=== PATIENT | male | born 1960 ===

== ENCOUNTER 2025-03-24 09:59 | Outpatient (REF) | payer OTHER, SELFPAY ==
--- NOTE | ~2025-03-24 | XR_ITS ---
EXAMINATION: XR ELBOW 3 VIEWS RIGHT HISTORY: M25.529 - Pain in unspecified elbow COMPARISON: Comparison is made with prior outside examinations from [facility] dated 03/13/2025. FINDINGS: Three views of the right elbow are submitted. Osseous mineralization is normal. There is an osseous density at the posterior aspect of the elbow without change which may represent a triceps tendon injury/avulsion. The joint spaces are preserved. There is no joint effusion. XR/XR elbow RT min 3V IMPRESSION: Osseous density at the posterior aspect of the elbow which may represent a triceps tendon injury/avulsion. Electronically signed by: Bubba Chawla MD 03/24/2025 01:37 PM EST
== END 2025-03-24 10:00 | disposition home or self-care (01) ==
LOC: HO.HOSX 09:59
PROVIDERS: Visit Provider Physician Assistant
DX: S46.311A Strain of muscle, fascia and tendon of triceps, right arm, initial encounter (principal); W00.0XXA Fall on same level due to ice and snow, initial encounter; Y92.69 Other specified industrial and construction area as the place of occurrence of the external cause; Y93.89 Activity, other specified; Y99.0 Civilian activity done for income or pay
CPT/HCPCS: 73080

== ENCOUNTER 2025-03-24 10:25 | Outpatient (AMB) | payer OTHER, SELFPAY ==
--- NOTE | 2025-03-24 10:51 | MHC.OFFVIS ---
Vital Signs 03/24/25 11:02 Height 5 ft 7 in Weight 190 lb BMI 29.8 Handedness Right Intake Visit Reasons: FC- WC RT Olecranon fx DOI 03/11/25 Intake Note: Red is a 64 year old right hand dominant male who presents today for a evaluation of his right elbow injury, 03/11/25. Patient reports he went to the urgent care on 03/13/25. Patient is having complaints of triceps and shoulder pain. He states that he slipped on ice at work. Patient states he is having little to no pain at the moment. Pain is present when he is putting weight and bumping his elbow. Patient is taking Tylenol with relief. Allergies No Known Allergies Allergy (Verified 03/24/25 10:58) HPI HPI - RT Olecranon fx DOI 03/11/25: Details: The patient is a 64-year-old right-hand dominant male who presents to the office today for evaluation of a right elbow injury that occurred on 03/11/2025 while at work. He states that he slipped and fell on ice landing directly onto the right elbow. He felt immediate pain and presented to the urgent care on 03/13/2025 where x-rays were obtained. He states that he was diagnosed with a fracture and placed into a long-arm splint with a sling and and instructed to follow up with orthopedics outpatient for further evaluation and treatment. 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 Range of motion lacking roughly 20 degrees of full extension. Weakness with resisted elbow extension. Small defect noted over the triceps tendon attachment. NVI. Psych Appearance: grossly normal Mental Status: mental status grossly normal Attitude: cooperative Assessment & Plan Assessment & Plan (1) Avulsion fracture of bone: Code(s): T14.8XXA - Other injury of unspecified body region, initial encounter Category: Medical (2) Rupture of right triceps tendon: Code(s): S46.311A - Strain of muscle, fascia and tendon of triceps, right arm, initial encounter Category: Medical Plan The patient is a 64-year-old right-hand dominant male who presents to the office today for evaluation of a right elbow injury that occurred on 03/11/2025 while at work. He states that he slipped and fell on ice landing directly onto the right elbow. He felt immediate pain and presented to the urgent care on 03/13/2025 where x-rays were obtained. He states that he was diagnosed with a fracture and placed into a long-arm splint with a sling and and instructed to follow up with orthopedics outpatient for further evaluation and treatment. I discussed the case with Dr. Menchaca and explained the extent of the injury to the patient and options available which include surgical intervention. I explained the procedure in detail along with the length of recovery and rehab course. I explained the risk, benefits and alternatives. Risk including, but not limited to infection, blood clots, bleeding, non union or malunion, amputation and nerve/tissue damage to surrounding areas. I answered all their questions and with their understanding they have consented to move forward with right elbow triceps tendon repair. X-rays of the right elbow which were obtained while in the office today and were reviewed by me, Mary Torres PA-C, revealed avulsion fracture off of the olecranon. Orders: Orders XR elbow RT min 3V Today M25.529 - Pain in unspecified elbow Coding Level of Care Code New Pt Level 4 (11926) Add On Problem Visit Only Diagnoses Avulsion fracture of bone T14.8XXA Rupture of right triceps tendon S46.311A
[2025-03-24 11:02] VITALS: BMI 29.8
== END 2025-03-25 08:29 | disposition home or self-care (01) ==
LOC: HO.HOS 10:25
PROVIDERS: Visit Provider Physician Assistant
DX: S46.311A Strain of muscle, fascia and tendon of triceps, right arm, initial encounter (principal); T14.8XXA Other injury of unspecified body region, initial encounter; W19.XXXA Unspecified fall, initial encounter
CPT/HCPCS: 99204; G2211

== ENCOUNTER → 2025-03-24 10:27 | Outpatient (BNV) | payer OTHER, SELFPAY | PROVIDERS: Visit Provider Radiology Diagnostic Radiology | DX: M25.521 Pain in right elbow (principal) | CPT/HCPCS: 73080 ==

== ENCOUNTER 2025-03-25 09:25 | Day surgery (SDC) | payer OTHER, SELFPAY ==
[2025-03-25] VITALS (11 sets, daily range): BP systolic 119–141; BP diastolic 47–78; PULSE 38–45; RESP 15–18; TEMP 36.1–36.3; O2SAT 90–98; BMI 29.0
--- NOTE | 2025-03-25 09:05 | HO.ANESPROP2 ---
Documented by User: Lizbeth Wallis NP 03/25/25 09:09 HPI - Anesthesia Eval Consult details Narrative: 64 yr old male for right tricep tendon repair No recent illness No CP or SOB, can do flight of stairs, active for work, regular walking. Pt reports low resting HR . Reports having skipped beats in past, no dizziness or lightheadedness. Does not follow with cardiology or EP. [facility] Active Problems Active Problems: All Active Problems (Updated 03/24/25 @ 13:16 by Mary Torres PA-C) Rupture of right triceps tendon (Acute) Avulsion fracture of bone (Acute) Past Medical History Medical History (Updated 03/25/25 @ 10:15 by Lorenza Dupont RN) Hearing loss Raynauds syndrome Snoring Enlarged prostate Elevated cholesterol Slow heart rate Family History Family history of problems with anesthesia: No Surgical History Surgical History (Updated 03/25/25 @ 09:49 by Lorenza Dupont RN) H/O colonoscopy [place] teeth extracted H/O vasectomy History of Problems with Anesthesia: No Social History Social History (Updated 03/24/25 @ 11:04 by Norman Martinez) Alcohol intake: current Alcohol intake frequency: holidays/special occasions only Patient Tobacco Use Status: Never used Tobacco Use of substances other than those prescribed or required for medical reasons: No Are you DNR?: No Advance Directives: No Advance Directives Information Provided: Yes Current occupational status: employed 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 Meds Allergies Allergy/AdvReac Type Severity Reaction Status Date / Time No Known Allergies Allergy Verified 03/24/25 10:58 Home Medications ?Medication ?Instructions ?Recorded ?Confirmed ?Last Taken ?Type rosuvastatin 5 mg tablet 5 mg PO BEDTIME 03/24/25 03/25/25 Unknown History tamsulosin 0.4 mg capsule 0.4 mg PO DAILY 03/24/25 03/25/25 Unknown History Assessment and Plan Final Anesthetic Review Family History of Problems with Anesthesia: No History of Problems with Anesthesia: No Documented by User: Manolo Laurent MD 03/25/25 10:59 PMFSH Past Medical History Medical History (Updated 03/25/25 @ 10:15 by Lorenza Dupont, RN) Hearing loss Raynauds syndrome Snoring Enlarged prostate Elevated cholesterol Slow heart rate Surgical History Surgical History (Updated 03/25/25 @ 09:49 by Lorenza Dupont, RN) H/O colonoscopy [place] teeth extracted H/O vasectomy Social History Social History (Updated 03/24/25 @ 11:04 by Norman Martinez) Alcohol intake: current Alcohol intake frequency: holidays/special occasions only Patient Tobacco Use Status: Never used Tobacco Use of substances other than those prescribed or required for medical reasons: No Are you DNR?: No Advance Directives: No Advance Directives Information Provided: Yes Current occupational status: employed 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 Meds Allergies Allergy/AdvReac Type Severity Reaction Status Date / Time No Known Allergies Allergy Verified 03/24/25 10:58 Home Medications ?Medication ?Instructions ?Recorded ?Confirmed ?Last Taken ?Type rosuvastatin 5 mg tablet 5 mg PO BEDTIME 03/24/25 03/25/25 Unknown History tamsulosin 0.4 mg capsule 0.4 mg PO DAILY 03/24/25 03/25/25 Unknown History Exam Airway Mallampati Class: II TM Dist: <=3cm Neck ROM: Full Loose/Missing/Broken Teeth: No Heart: ok Lungs: ok Assessment and Plan Assessment Anesthesia Assessment: Anesthesia Plan Discussed and Chart Reviewed Final Anesthetic Review NPO: Yes ASA Class: III Final Preanesthetic Review: No Changes in Pt Med Stat, Meds/Allgs Chart Reviewed, Consent Obtained/Reviewed and Anes Risks/Benef Reviewed Patient Risk: Intermediate Procedure Risk: Intermediate Anesthetic Plan Anesthetic Plan: GA and Regional Block Disposition: Standard PACU
[2025-03-25] MEDS: Lactated Ringers 1,000 ML 100 ML IVCONT (10:13)
--- NOTE | 2025-03-25 10:43 | MHC.SHP ---
Pre-Procedural Eval Section A - 24 Hr Update-Section A only Date of Service: 03/25/25 The patient is an INPATIENT: No Changes since office visit: No Cold of Flu in the past 2 weeks, No New Medical Problems, No Changes in Medication and No Patient answered all questions The patient has been examined within 24 hours of the surgical procedure. The History & Physical has been completed within 30 days and I have reviewed it.: Yes Section B - Complete if H&P > 30 days Chief Complaint: Strain of muscle, fascia and tendon of triceps, ri Allergies: Allergies Allergy/AdvReac Type Severity Reaction Status Date / Time No Known Allergies Allergy Verified 03/24/25 10:58 Plan I have reviewed the history and physical and performed a pertinent physical examination on my patient. No changes have occurred unless specified. Time Spent With Patient Time: Total time managing care of this patient today ____ minutes.
--- NOTE | 2025-03-25 13:27 | P.BOP_ITS ---
Brief Operative Note Date of Service: 03/25/25 Pre-op diagnosis: Right triceps rupture Post-op diagnosis: same Procedure: Right triceps repair Implants: S&N mini q-fix x 2; Mini footprint x 2; Regeneten bio-inductive colalgen patch, large. Surgeon: Jared Menchaca MD Anesthesia: GLMA and regional Was an Chest Painting And Sealing Supervisor used for this Procedure?: No Estimated blood loss (mL): 35 IV fluids (mL): 800 Pathology: none sent Condition: stable Disposition: PACU
--- NOTE | 2025-03-25 13:37 | P.OP_ITS ---
Operative Note Operative Note Date of Service: 03/25/25 Narrative: Date of Service: 03/25/25 Pre-op diagnosis: Right triceps rupture Post-op diagnosis: same Procedure: Right triceps repair Implants: S&N mini q-fix x 2; Mini footprint x 2; Regeneten bio-inductive colalgen patch, large. Surgeon: Jared Menchaca MD Anesthesia: GLMA and regional Was an Ultrasonic Cleaner used for this Procedure?: No Estimated blood loss (mL): 35 IV fluids (mL): 800 Pathology: none sent Condition: stable Disposition: PACU Procedure in detail: Patient was brought to the operating room and placed in the prone position. He was prepped and draped in standard sterile fashion IV antibiotics per weight were administered. I began by making a proximally 4 cm incision over the olecranon. Dissection through the skin revealed a full-thickness tear of the medial 75% of the triceps. I cleaned up the torn tendinous ends and cleaned up the bony insertion. I then placed 2 mini q fix anchors at the most distal aspect of the olecranon ensuring that I was intraosseous at all times. I then passed these FiberTape ends through the triceps tendon approximatey 2 cm proximal to the tear insertion. Once this was done I brought the ends in a typical cross-bridge configuration down over the tip of the olecranon. This compressed the tear nicely. Two mini footprint anchors were placed in standard fashion distally and the tails of the medial row anchors were brought to these more anchors. They were tightened appropriately and again I was satisfied with the compression over the site of repair. Prior to compressing the tendon I used a rongeur to debride the insertion site down to bleeding bone. The quality of the tendon was ragged with irregular areas of intrasubstance tearing. Therefore I elected to place a Regeneten large collagen patch over the site of repair. This was kept in place with 2-0 Vicryl. I irrigated copiously prior to placement. Once I was satisfied with the position of the patch I closed the subcutaneous tissue with 3-0 Vicryl and V lock. Glue and Steri-Strips were applied. Patient was placed in sterile dressing. A well-padded posterior splint was placed and patient was extubated and brought to the recovery room in stable condition. There were no known complications. Patient will be placed in a hinged elbow brace approximately 10 days postop at his 1st postoperative visit.
== END 2025-03-25 15:56 | disposition home or self-care (01) ==
PROVIDERS: PCP Internal Medicine; Visit Provider Orthopaedic Surgery
PROC: (CPT 24341; principal; 2025-03-25 11:30)
DX: S46.311A Strain of muscle, fascia and tendon of triceps, right arm, initial encounter (principal); T14.8XXA Other injury of unspecified body region, initial encounter; M25.521 Pain in right elbow; W00.0XXA Fall on same level due to ice and snow, initial encounter; Y93.01 Activity, walking, marching and hiking; Y92.63 Factory as the place of occurrence of the external cause; Y99.0 Civilian activity done for income or pay
CPT/HCPCS: 24342; C1713; C1763; J0131; J0461; J0690; J2003; J2250; J2704; J2795; J3010

== ENCOUNTER → 2025-03-25 09:25 | Outpatient (BNV) | payer OTHER, SELFPAY | PROVIDERS: PCP Internal Medicine; Visit Provider Orthopaedic Surgery | DX: S46.311A Strain of muscle, fascia and tendon of triceps, right arm, initial encounter (principal) | CPT/HCPCS: 24342 ==

== ENCOUNTER 2025-03-31 11:17 | Outpatient (AMB) | payer OTHER, SELFPAY ==
--- NOTE | 2025-03-31 11:21 | MHC.OFFVIS ---
Intake Visit Reasons: PO - Right Tricep Tendon Repair 03/25/25 Intake Note: Red is a 64 year old male who presents today post operatively after undergoing a right tricep tendon repair, performed by Dr. Menchaca on 03/25/25. Patient reports that he is doing well, states that he has been managing his pain with the use of Tyelnol. His current pain level is 3-4 out of 10. Allergies No Known Allergies Allergy (Verified 03/31/25 11:24) Medication List - Last Reconciled 03/31/25 by Nathen Callaway PA-C oxycodone 5 mg PO Q8H PRN 5 days rosuvastatin 5 mg PO BEDTIME tamsulosin 0.4 mg PO DAILY HPI HPI PO - Right Tricep Tendon Repair 03/25/25: Details: 64-year-old gentleman presents to the office today for a wound check. He is status post right triceps tendon repair on 03/25/[address] Menchaca. Patient states his pain is well tolerated. He remains out of work. 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 Steri-Strips intact. Mild swelling around the elbow. He has good sensation throughout the forearm wrist and fingers. Pulses are present. Assessment & Plan Assessment & Plan (1) Avulsion fracture of bone: Code(s): T14.8XXA - Other injury of unspecified body region, initial encounter Category: Medical (2) Rupture of right triceps tendon: Code(s): S46.311A - Strain of muscle, fascia and tendon of triceps, right arm, initial encounter Category: Medical Plan The splint was removed today and the patient was placed in an elbow range of motion brace. I locked his brace with ROM of 10-60. I advised against any lifting with the right upper extremity. He can perform gentle supination pronation of the right hand without weight. I also stressed the importance of avoiding hyperflexion and extension at the level of the right elbow to ensure healing of the repair. I explained the 1st 6 weeks postop are crucial for tendon healing followed by 6 weeks of regaining function and strength. The patient will follow-up next with Mary while Dr. Menchaca is in the office for a range of motion and wound check and potential initiation of occupational therapy. The patient will remain out of work for up to 3 months. Coding Level of Care Code Global (24629) Diagnoses Avulsion fracture of bone T14.8XXA Rupture of right triceps tendon S46.311A
== END 2025-03-31 12:05 | disposition home or self-care (01) ==
LOC: HO.HOS 11:17
PROVIDERS: PCP Internal Medicine; Visit Provider Physician Assistant
DX: T14.8XXA Other injury of unspecified body region, initial encounter (principal); S46.311A Strain of muscle, fascia and tendon of triceps, right arm, initial encounter
CPT/HCPCS: 99024

== ENCOUNTER → 2025-03-31 11:17 | Outpatient (BNVA) | payer OTHER, SELFPAY | PROVIDERS: PCP Internal Medicine; Visit Provider Physician Assistant | DX: S46.311D Strain of muscle, fascia and tendon of triceps, right arm, subsequent encounter (principal); T14.8XXD Other injury of unspecified body region, subsequent encounter; X58.XXXD Exposure to other specified factors, subsequent encounter | CPT/HCPCS: 99212 ==